=== PATIENT | female | born 1960 | race Caucasian/White ===

== ENCOUNTER 2020-06-29 09:32 | Emergency (ER) | payer OTHER, SELFPAY ==
[~2020-06-29] VITALS: Ht 157.5 cm; Wt 68.0 kg
[2020-06-29 09:55] VITALS: BP 117/89
--- NOTE | 2020-06-29 11:45 | NUR ---
C/O SORE THROAT X1 DAY. DENIES FEVER/COUGH
--- NOTE | 2020-06-29 12:00 | NUR ---
covid swab collected
[2020-06-29 12:08] VITALS: BP 117/89
== END 2020-06-29 12:09 | disposition home or self-care (01) ==
LOC: MED 09:32
DX: J02.9 Acute pharyngitis, unspecified (principal); Z20.828 Contact with and (suspected) exposure to other viral communicable diseases; I10 Essential (primary) hypertension; Z90.49 Acquired absence of other specified parts of digestive tract
CPT/HCPCS: 99283; U0003

== ENCOUNTER 2024-03-24 06:19 | Day surgery (SDC) | payer OTHER ==
[~2024-03-24] VITALS: Ht 160 cm; Wt 72.6 kg
[2024-03-24] MEDS ORDERED: fentaNYL citrate 0.05 MG/ML VIAL ONE (07:27)
[2024-03-24] MEDS: fentaNYL citrate 0.05 MG/ML VIAL IVP ONE (07:51)
[2024-03-24] MEDS: LIDOCAINE 2% 100 MG/5 ML UJET TP ONE (08:03)
== END 2024-03-24 09:00 | disposition home or self-care (01) ==
LOC: MDS 06:19 → MMU 06:29 → MDS 09:00
PROVIDERS: ATTEND Internal Medicine Gastroenterology
DX: Z12.11 Encounter for screening for malignant neoplasm of colon (principal); K63.5 Polyp of colon; K57.30 Diverticulosis of large intestine without perforation or abscess without bleeding; I10 Essential (primary) hypertension; E78.00 Pure hypercholesterolemia, unspecified; E11.9 Type 2 diabetes mellitus without complications; K21.9 Gastro-esophageal reflux disease without esophagitis; U07.1 COVID-19; Z79.84 Long term (current) use of oral hypoglycemic drugs; Z79.899 Other long term (current) drug therapy
CPT/HCPCS: 45385; 82948; J3010